=== PATIENT | male | born 1940 | race African-American/Black ===

== ENCOUNTER 2019-12-25 13:41 | Inpatient (IN) | payer OTHER ==
[2019-12-25] VITALS (13 sets, daily range): BP systolic 68–162; BP diastolic 49–84
[~2019-12-25] VITALS: Ht 172.7 cm; Wt 83.1 kg
[2019-12-25] MEDS ORDERED: SODIUM CHLORIDE 0.9% 1,000 ML IV ONE ×2 (15:56→16:34)
[2019-12-25 16:15] LABS: CHLORIDE 103 mEq/L (98-107)
[2019-12-25 16:19] LABS: ETHANOL BLOOD < 10 mg/dL
[2019-12-25 16:25] LABS: BASOPHILS % 0.1 % (0.0-2.0); EOSINOPHILS % 0.3 % (0.0-5.0); HEMATOCRIT. 41.6 % (42.0-52.0); HEMOGLOBIN. 14.2 g/dL (14.0-18.0); LYMPHOCYTES % 7.5 % (20.0-50.0); MEAN CORPUSCULAR HEMOGLOBIN 32.2 pg (28.0-32.0); MEAN CORPUSCULAR VOLUME 94.3 fL (80.0-94.0); MEAN PLATELET VOLUME 10.3 fl (7.4-10.4); MONOCYTES % 10.2 % (2.0-8.0); NEUTROPHILS % 81.9 % (40.0-76.0); PLATELET 277 x1000/uL (130-400); RED BLOOD CELL COUNT 4.42 mill/uL (4.7-6.1); RED CELL DISTRIBUTION WIDTH 13.9 % (11.6-14.6)
[2019-12-25] MEDS ORDERED: LEVETIRACETAM 500MG PREMIX 100 ML IV ONE (16:45)
[2019-12-25 17:40] LABS: CREATINE KINASE 703 IU/L (39-308)
[2019-12-25] MEDS ORDERED: BACITRACIN 15GM TUBE TOP ONE (17:43)
[2019-12-25] MEDS ORDERED: THROMBIN (BOVINE) 5000 UNITS/VIAL TOP ONE (17:43)
[2019-12-25] MEDS ORDERED: NORMAL SALINE 0.9% 10 ML SYR ONE (17:43)
[2019-12-25] MEDS ORDERED: LIDOCAINE HCL 1% 20ML VIAL (Pyxis) INJ ONE ×2 (17:43→19:18)
[2019-12-25] MEDS ORDERED: LACTATED RINGERS 3,000 ML IV ONE (17:44)
[2019-12-25] MEDS ORDERED: BACITRACIN 50,000 UNITS/VIAL ONE (17:44)
[2019-12-25] MEDS ORDERED: LIDOCAINE HCL/EPINEPHRINE 1%-EPI 1:100,000 20 ML VIAL ONE (17:44)
[2019-12-25] MEDS ORDERED: NICARDIPINE 100 MG in SODIUM CHLORIDE 0.9% 60 ML IV PRN (17:45)
[2019-12-25 18:10] LABS: PROTHROMBIN TIME 10.8 sec (9.6-11.0)
[2019-12-25] MEDS ORDERED: MIDAZOLAM HCL 2 MG/2 ML VIAL ONE (19:12)
[2019-12-25] MEDS ORDERED: FENTANYL CITRATE/PF 50MCG/ML 2ML VIAL ONE (19:12)
[2019-12-25] MEDS ORDERED: PROPOFOL 200MG/20ML VIAL IV ONE (19:13)
[2019-12-25] MEDS ORDERED: ROCURONIUM BROMIDE 10MG/ML VIAL 5ML IV ONE (19:19)
[2019-12-25] MEDS ORDERED: SUCCINYLCHOLINE CHLORIDE 200MG/10ML IV ONE (19:19)
[2019-12-25] MEDS ORDERED: SODIUM CHLORIDE 0.9% 10ML VIAL ONE ×2 (19:57→20:26)
[2019-12-25] MEDS ORDERED: EPHEDRINE SULFATE 50MG/ML VIAL ONE (19:57)
[2019-12-25] MEDS ORDERED: NEOSTIGMINE METHYLSULFATE 1MG/ML 10 ML VIAL ONE (20:03)
[2019-12-25] MEDS ORDERED: GLYCOPYRROLATE 0.2 MG/ML 2ML VIAL ONE (20:03)
[2019-12-25] MEDS ORDERED: ESMOLOL HCL 10MG/ML 10ML VIAL IV ONE (20:08)
[2019-12-25] MEDS ORDERED: LABETALOL HCL 5MG/ML VIAL 20ML IV ONE (20:13)
[2019-12-25] MEDS ORDERED: HYDRALAZINE 20MG/ML VIAL ONE (20:26)
[2019-12-25] MEDS ORDERED: ONDANSETRON HCL 4MG/2ML INJ ONE (20:46)
[2019-12-25] MEDS: DEXT 5%/LACTATED RINGERS 1,000 ML IV SCH (21:52)
[2019-12-25] MEDS: LEVETIRACETAM 500MG PREMIX 100 ML IV SCH (21:53)
[2019-12-25] MEDS: MORPHINE SULFATE 2 MG/ML CPJ (NOT FOR IM USE) IV PRN (21:54)
[2019-12-25] MEDS ORDERED: CEFAZOLIN SODIUM 1000MG/VIAL IV SCH ×2 (22:00)
[2019-12-25] MEDS: NICARDIPINE 100 MG in SODIUM CHLORIDE 0.9% 60 ML IV PRN (22:18)
[2019-12-25] MEDS ORDERED: ONDANSETRON HCL 4MG/2ML INJ IV PRN (23:45)
[2019-12-26] VITALS (99 sets, daily range): BP systolic 66–189; BP diastolic 33–298
[2019-12-26] MEDS: MORPHINE SULFATE 2 MG/ML CPJ (NOT FOR IM USE) IV PRN ×2 (01:08→11:54)
[2019-12-26] MEDS: CEFAZOLIN 1000MG PREMIX 50 ML IV SCH ×2 (03:33→11:53)
[2019-12-26 05:29] LABS: BASOPHILS % 0.3 % (0.0-2.0); EOSINOPHILS % 0.3 % (0.0-5.0); HEMATOCRIT. 38.3 % (42.0-52.0); HEMOGLOBIN. 12.7 g/dL (14.0-18.0); LYMPHOCYTES % 9.2 % (20.0-50.0); MEAN CORPUSCULAR HEMOGLOBIN 31.6 pg (28.0-32.0); MEAN CORPUSCULAR VOLUME 95.1 fL (80.0-94.0); MEAN PLATELET VOLUME 10.3 fl (7.4-10.4); MONOCYTES % 10.6 % (2.0-8.0); NEUTROPHILS % 79.6 % (40.0-76.0); PLATELET 257 x1000/uL (130-400); RED BLOOD CELL COUNT 4.03 mill/uL (4.7-6.1); RED CELL DISTRIBUTION WIDTH 14.1 % (11.6-14.6)
[2019-12-26 05:46] LABS: CHLORIDE 109 mEq/L (98-107)
[2019-12-26 05:58] LABS: CREATINE KINASE 847 IU/L (39-308)
[2019-12-26 06:00] LABS: T4 FREE 1.15 ng/dL (0.76-1.46)
[2019-12-26 06:03] LABS: CREATINE KINASE MB FRACTION 4.1 ng/mL (0.5-3.6)
[2019-12-26] MEDS ORDERED: PNEUMOCOCCAL 23-VAL P-SAC VAC 0.5 ML IM ONE (08:00)
[2019-12-26] MEDS: LEVETIRACETAM 500MG PREMIX 100 ML IV SCH ×2 (08:57→21:28)
[2019-12-26] MEDS: DEXT 5%/LACTATED RINGERS 1,000 ML IV SCH (11:54)
[2019-12-26 15:48] LABS: CREATINE KINASE 708 IU/L (39-308)
[2019-12-26 15:49] LABS: CREATINE KINASE MB FRACTION 3.3 ng/mL (0.5-3.6)
[2019-12-26] MEDS: NICARDIPINE 100 MG in SODIUM CHLORIDE 0.9% 60 ML IV PRN (15:57)
[2019-12-26] MEDS ORDERED: ACETAMINOPHEN 325MG TABLET PO PRN (16:15)
[2019-12-26] MEDS ORDERED: ACETAMINOPHEN 650MG SUPP PR PRN (16:15)
[2019-12-26 16:50] LABS: BG BASE EXCESS 0.5 mmol/L (-2.0-2.0); BG CARBOXYHEMOGLOBIN 0.3 % (0.5-1.5); BG DEOXYHEMOGLOBIN 9.3 % (0.0-5.0); BG HCO3 ACT 23.8 mmol/L (22.0-26.0); BG METHEMOGLOBIN 0.3 % (0.0-1.5); BG OXYGEN SATURATION 90.6 % (92.0-98.5); BG OXYHEMOGLOBIN 90.1 % (94.0-97.0); BG PCO2 34.4 mmHg (35.0-45.0); BG PH 7.458 (7.350-7.450); BG PO2 57.3 mmHg (75.0-100.0); BG SAMPLE SITE A-LINE; BG TOTAL HEMOGLOBIN 13.4 g/dL (12.0-18.0); BG VENT MODE ROOM AIR
[2019-12-26] MEDS: PIPERACILLIN/TAZOBACTAM 3.375 G in DEXT 5% WATER 100 ML IV SCH (18:22)
[2019-12-26] MEDS: VANCOMYCIN HCL 750 MG in DEXT 5% WATER 250 ML IV SCH (18:22)
[2019-12-26] MEDS: AMLODIPINE 5MG TABLET PO SCH (18:23)
[2019-12-26 19:40] LABS: *AMPHETAMINES SCREEN URINE NEGATIVE (NEGATIVE); *BARBITURATES SCREEN URINE NEGATIVE (NEGATIVE); *BENZODIAZEPINES SCREEN URINE PRESUMTIVE POSITIVE (NEGATIVE)
[2019-12-26 19:41] LABS: *COCAINE SCREEN URINE NEGATIVE (NEGATIVE); CANNABINOID URINE SCREEN NEGATIVE (NEGATIVE); METHADONE URINE SCREEN NEGATIVE (NEGATIVE); OPIATES URINE SCREEN PRESUMTIVE POSITIVE (NEGATIVE)
[2019-12-26 19:42] LABS: PHENCYCLIDINE URINE SCREEN NEGATIVE (NEGATIVE)
[2019-12-26] MEDS: HYDRALAZINE HCL 25MG TABLET PO SCH (21:29)
[2019-12-27] VITALS (99 sets, daily range): BP systolic 68–180; BP diastolic 25–96
[2019-12-27] MEDS: NICARDIPINE 100 MG in SODIUM CHLORIDE 0.9% 60 ML IV PRN ×2 (01:24→17:18)
[2019-12-27] MEDS: PIPERACILLIN/TAZOBACTAM 3.375 G in DEXT 5% WATER 100 ML IV SCH ×5 (01:24→23:48)
[2019-12-27 05:38] LABS: CHLORIDE 106 mEq/L (98-107)
[2019-12-27 05:39] LABS: BASOPHILS % 0.3 % (0.0-2.0); EOSINOPHILS % 0.9 % (0.0-5.0); HEMATOCRIT. 38.7 % (42.0-52.0); HEMOGLOBIN. 12.9 g/dL (14.0-18.0); LYMPHOCYTES % 10.6 % (20.0-50.0); MEAN CORPUSCULAR HEMOGLOBIN 31.4 pg (28.0-32.0); MEAN CORPUSCULAR VOLUME 94.4 fL (80.0-94.0); MEAN PLATELET VOLUME 10.4 fl (7.4-10.4); MONOCYTES % 11.8 % (2.0-8.0); NEUTROPHILS % 76.4 % (40.0-76.0); PLATELET 253 x1000/uL (130-400); RED CELL DISTRIBUTION WIDTH 14.1 % (11.6-14.6)
[2019-12-27 05:52] LABS: LDL CHOLESTEROL 73 mg/dL (5-100)
[2019-12-27 05:53] LABS: HDL CHOLESTEROL 57 mg/dL (40-59)
[2019-12-27] MEDS: VANCOMYCIN HCL 750 MG in DEXT 5% WATER 250 ML IV SCH ×2 (06:18→17:19)
[2019-12-27] MEDS: HYDRALAZINE HCL 25MG TABLET PO SCH ×3 (08:05→21:24)
[2019-12-27] MEDS: AMLODIPINE 5MG TABLET PO SCH ×2 (08:06→21:24)
[2019-12-27] MEDS: MORPHINE SULFATE 2 MG/ML CPJ (NOT FOR IM USE) IV PRN (08:07)
[2019-12-27] MEDS: LEVETIRACETAM 500MG PREMIX 100 ML IV SCH ×2 (08:08→21:24)
[2019-12-27] MEDS ORDERED: POTASSIUM CHLORIDE 20MEQ TABLET SR PO NR (11:15)
[2019-12-27 14:09] LABS: BG BASE EXCESS -0.3 mmol/L (-2.0-2.0); BG CARBOXYHEMOGLOBIN 0.3 % (0.5-1.5); BG DEOXYHEMOGLOBIN 8.8 % (0.0-5.0); BG FRACTION INSPIRED OXYGEN 21; BG HCO3 ACT 23.1 mmol/L (22.0-26.0); BG METHEMOGLOBIN 0.2 % (0.0-1.5); BG OXYGEN SATURATION 91.2 % (92.0-98.5); BG OXYHEMOGLOBIN 90.7 % (94.0-97.0); BG PCO2 34.2 mmHg (35.0-45.0); BG PH 7.448 (7.350-7.450); BG PO2 58.8 mmHg (75.0-100.0); BG SAMPLE SITE A-LINE; BG TOTAL HEMOGLOBIN 12.9 g/dL (12.0-18.0); BG VENT MODE ROOM AIR
[2019-12-27 16:17] LABS: CLARITY URINE CLOUDY (CLEAR); COLOR URINE DK YELLOW (YELLOW); KETONES URINE NEGATIVE (NEGATIVE); LEUKOCYTE ESTERASE URINE 1+ (NEGATIVE); NITRITE URINE NEGATIVE (NEGATIVE); OCCULT BLOOD URINE 1+ (NEGATIVE); PROTEIN URINE TRACE (NEGATIVE); SPECIFIC GRAVITY URINE 1.023 (1.005-1.030)
[2019-12-27] MEDS: LOSARTAN POTASSIUM 25 MG TABLET PO SCH (17:19)
[2019-12-28] VITALS (77 sets, daily range): BP systolic 83–169; BP diastolic 46–108
[2019-12-28] MEDS: NICARDIPINE 100 MG in SODIUM CHLORIDE 0.9% 60 ML IV PRN ×2 (00:36→10:01)
[2019-12-28] MEDS: PIPERACILLIN/TAZOBACTAM 3.375 G in DEXT 5% WATER 100 ML IV SCH ×3 (05:02→17:34)
[2019-12-28] MEDS: VANCOMYCIN HCL 750 MG in DEXT 5% WATER 250 ML IV SCH (05:02)
[2019-12-28] MEDS: HYDRALAZINE HCL 25MG TABLET PO SCH ×3 (05:04→21:16)
[2019-12-28 05:48] LABS: BASOPHILS % 0.5 % (0.0-2.0); EOSINOPHILS % 1.1 % (0.0-5.0); HEMATOCRIT. 37.5 % (42.0-52.0); HEMOGLOBIN. 12.7 g/dL (14.0-18.0); LYMPHOCYTES % 11.2 % (20.0-50.0); MEAN CORPUSCULAR HEMOGLOBIN 31.6 pg (28.0-32.0); MEAN CORPUSCULAR VOLUME 93.6 fL (80.0-94.0); MEAN PLATELET VOLUME 10.4 fl (7.4-10.4); MONOCYTES % 11.5 % (2.0-8.0); NEUTROPHILS % 75.7 % (40.0-76.0); PLATELET 272 x1000/uL (130-400); RED CELL DISTRIBUTION WIDTH 13.9 % (11.6-14.6)
[2019-12-28 06:23] LABS: HEPATITIS B SURFACE ANTIGEN NEGATIVE
[2019-12-28 06:52] LABS: HEPATITIS A AB IGM NEGATIVE (NEGATIVE)
[2019-12-28 07:39] LABS: CHLORIDE 104 mEq/L (98-107)
[2019-12-28 07:48] LABS: VANCOMYCIN TROUGH 6.7 ug/mL (5.0-10.0)
[2019-12-28] MEDS: LEVETIRACETAM 500MG PREMIX 100 ML IV SCH ×2 (08:30→20:42)
[2019-12-28] MEDS: LOSARTAN POTASSIUM 25 MG TABLET PO SCH (08:30)
[2019-12-28] MEDS: AMLODIPINE 5MG TABLET PO SCH ×2 (08:31→20:43)
[2019-12-28] MEDS ORDERED: VANCOMYCIN 500 MG PREMIX 100 ML IV SCH (10:00)
[2019-12-28] MEDS ORDERED: POTASSIUM CHLORIDE 20MEQ TABLET SR PO SCH (10:15)
[2019-12-28] MEDS ORDERED: LOSARTAN POTASSIUM 25 MG TABLET PO SCH (10:30)
[2019-12-28] MEDS: LOSARTAN POTASSIUM 50 MG TABLET PO SCH (20:43)
[2019-12-29] VITALS: BP 140/78
[2019-12-29] MEDS: PIPERACILLIN/TAZOBACTAM 3.375 G in DEXT 5% WATER 100 ML IV SCH ×5 (00:45→23:58)
[2019-12-29 04:00] VITALS: BP 137/81
[2019-12-29] MEDS: VANCOMYCIN 1250MG in DEXTROSE 5% WATER 250ML IV SCH ×3 (04:53→21:19)
[2019-12-29 05:52] LABS: CHLORIDE 107 mEq/L (98-107)
[2019-12-29 05:54] LABS: BASOPHILS % 0.4 % (0.0-2.0); EOSINOPHILS % 0.9 % (0.0-5.0); HEMATOCRIT. 37.1 % (42.0-52.0); HEMOGLOBIN. 12.4 g/dL (14.0-18.0); LYMPHOCYTES % 7.7 % (20.0-50.0); MEAN CORPUSCULAR HEMOGLOBIN 31.3 pg (28.0-32.0); MEAN CORPUSCULAR VOLUME 93.4 fL (80.0-94.0); MEAN PLATELET VOLUME 10.5 fl (7.4-10.4); MONOCYTES % 11.4 % (2.0-8.0); NEUTROPHILS % 79.6 % (40.0-76.0); PLATELET 286 x1000/uL (130-400); RED BLOOD CELL COUNT 3.97 mill/uL (4.7-6.1); RED CELL DISTRIBUTION WIDTH 13.9 % (11.6-14.6)
[2019-12-29] MEDS: HYDRALAZINE HCL 25MG TABLET PO SCH ×3 (07:18→21:20)
[2019-12-29 08:00] VITALS: BP 122/72
[2019-12-29] MEDS: LOSARTAN POTASSIUM 50 MG TABLET PO SCH ×2 (09:22→21:18)
[2019-12-29] MEDS: LEVETIRACETAM 500MG PREMIX 100 ML IV SCH ×2 (09:22→21:19)
[2019-12-29] MEDS: AMLODIPINE 5MG TABLET PO SCH ×2 (09:32→21:19)
[2019-12-29 10:08] LABS: HIV SCREEN 4G Non Reactive (Non Reactive)
[2019-12-29 12:00] VITALS: BP 117/66
[2019-12-29 16:00] VITALS: BP 120/74
[2019-12-29 20:00] VITALS: BP 123/69
[2019-12-30] VITALS: BP 128/70
[2019-12-30 04:00] VITALS: BP 127/68
[2019-12-30] MEDS: HYDRALAZINE HCL 25MG TABLET PO SCH ×2 (05:31→13:03)
[2019-12-30] MEDS: PIPERACILLIN/TAZOBACTAM 3.375 G in DEXT 5% WATER 100 ML IV SCH ×2 (05:31→13:02)
[2019-12-30 07:20] LABS: BASOPHILS % 0.6 % (0.0-2.0); EOSINOPHILS % 1.6 % (0.0-5.0); HEMATOCRIT. 38.6 % (42.0-52.0); HEMOGLOBIN. 13.1 g/dL (14.0-18.0); LYMPHOCYTES % 7.7 % (20.0-50.0); MEAN CORPUSCULAR HEMOGLOBIN 31.3 pg (28.0-32.0); MEAN CORPUSCULAR VOLUME 92.7 fL (80.0-94.0); MEAN PLATELET VOLUME 10.2 fl (7.4-10.4); MONOCYTES % 10.6 % (2.0-8.0); NEUTROPHILS % 79.5 % (40.0-76.0); PLATELET 305 x1000/uL (130-400); RED BLOOD CELL COUNT 4.17 mill/uL (4.7-6.1); RED CELL DISTRIBUTION WIDTH 13.8 % (11.6-14.6)
[2019-12-30 07:32] LABS: CHLORIDE 107 mEq/L (98-107)
[2019-12-30 08:00] VITALS: BP 133/71
[2019-12-30] MEDS: AMLODIPINE 5MG TABLET PO SCH ×2 (09:27→21:02)
[2019-12-30] MEDS: LEVETIRACETAM 500MG PREMIX 100 ML IV SCH ×2 (09:28→21:07)
[2019-12-30] MEDS: LOSARTAN POTASSIUM 50 MG TABLET PO SCH ×2 (09:28→21:03)
[2019-12-30 12:00] VITALS: BP 130/67
[2019-12-30] MEDS ORDERED: SULF1TAB48 MT (15:41)
[2019-12-30] MEDS ORDERED: KEPP500 MT (15:41)
[2019-12-30] MEDS ORDERED: CEPH-569 MT (15:41)
[2019-12-30] MEDS ORDERED: HYDR-4135 MT (15:41)
[2019-12-30] MEDS ORDERED: AMLO5TAB4 MT (15:41)
[2019-12-30] MEDS ORDERED: LOSA50TA3 MT (15:41)
[2019-12-30 16:00] VITALS: BP 149/78
[2019-12-30 20:00] VITALS: BP 151/77
[2019-12-30] MEDS: HYDRALAZINE HCL 50MG TABLET PO SCH (21:06)
[2019-12-31] VITALS: BP 143/79
[2019-12-31 04:00] VITALS: BP 140/72
[2019-12-31] MEDS: HYDRALAZINE HCL 50MG TABLET PO SCH ×2 (06:25→13:52)
[2019-12-31 08:00] VITALS: BP 135/77
[2019-12-31] MEDS: AMLODIPINE 5MG TABLET PO SCH (08:20)
[2019-12-31] MEDS: LOSARTAN POTASSIUM 50 MG TABLET PO SCH (08:20)
[2019-12-31] MEDS: LEVETIRACETAM 500MG PREMIX 100 ML IV SCH (08:20)
[2019-12-31 12:00] VITALS: BP 126/66
[2019-12-31 14:36] VITALS: BP 134/70
== END 2019-12-31 15:50 | disposition home or self-care (01) | DRG 25 ==
LOC: ER 13:41 → EDBEDREQ 16:39 → ENRESERV 17:45 → MICUNO 18:09 → EDBEDREQTM 18:10 → EDBEDREQ 18:10 → MICUSO 21:00 → 6EST 12-28 18:55
PROVIDERS: ADMIT Internal Medicine; ATTEND Internal Medicine
PROC: 00C40ZZ Extirpation of Matter from Intracranial Subdural Space, Open Approach (ICD-10-PCS; principal; 2019-12-25)
PROC: 00H032Z Insertion of Monitoring Device into Brain, Percutaneous Approach (ICD-10-PCS; 2019-12-25)
PROC: 00U207Z Supplement Dura Mater with Autologous Tissue Substitute, Open Approach (ICD-10-PCS; 2019-12-25)
PROC: 0NQ Head and Facial Bones, Repair (ICD-10-PCS; 2019-12-25)
PROC: 4A107BD Monitoring of Intracranial Pressure, Via Natural or Artificial Opening (ICD-10-PCS; 2019-12-25)
DX: I62.02 Nontraumatic subacute subdural hemorrhage (principal); J96.00 Acute respiratory failure, unspecified whether with hypoxia or hypercapnia; G93.40 Encephalopathy, unspecified; D72.810 Lymphocytopenia; D64.9 Anemia, unspecified; F10.10 Alcohol abuse, uncomplicated; F17.210 Nicotine dependence, cigarettes, uncomplicated; I10 Essential (primary) hypertension; Z60.2 Problems related to living alone; E80.6 Other disorders of bilirubin metabolism; Z59.0 Homelessness; Z03.818 Encounter for observation for suspected exposure to other biological agents ruled out
CPT/HCPCS: 36415; 36600; 71045; 80048; 80053; 80061; 80076; 80202; 80305; 80320; 81003; 82140; 82375; 82550; 82553; 82805; 83036; 83615; 84145; 84439; 84443; 84484; 85025; 86705; 86709; 86803; 86850; 86900; 87340; 87389; 87635; 88304; 93005; 97116; 97162; 97166; 97530; 97535; 99291; C1713; J0330; J0360; J0690; J1953; J2250; J2270; J2405; J2543; J2704; J2710; J3010; J3370; J3490; J7030; J7050; J7060; J7120; J7121; L3908; G0480

== ENCOUNTER 2020-03-29 20:16 | Emergency (ER) | payer OTHER ==
[~2020-03-29] VITALS: Ht 175.3 cm; Wt 79.0 kg
[~2020-03-29 20:16] MED LIST: AMLO5TAB4 MT; CEPH-569 MT; HYDR-4135 MT; KEPP500 MT; LOSA50TA3 MT; SULF1TAB48 MT
[2020-03-29] MEDS ORDERED: TETANUS, DIPHTHERIA, PERTUSSIS VAC/PF 0.5ML (>7YR OLD) IM ONE (22:15)
[2020-03-29] MEDS ORDERED: LIDOCAINE HCL/EPINEPHRINE 1%-EPI 1:100,000 20 ML VIAL INFIL ONE (23:45)
[2020-03-29] MEDS ORDERED: BACITRACIN ZINC OINT UDPKT TOP ONE (23:45)
[2020-03-29] MEDS ORDERED: AMOXICILLIN/POTASSIUM CLAVULANATE 875/125MG TAB PO ONE (23:45)
[2020-03-31] MEDS ORDERED: HYDRALAZINE 20MG/ML VIAL IV ONE (00:15)
[2020-03-31] MEDS ORDERED: HYDRALAZINE HCL 50MG TABLET PO SCH (01:15)
[2020-03-31] MEDS ORDERED: CLONIDINE 0.1MG TABLET PO ONE (06:45)
[2020-03-31 09:11] VITALS: BP 137/74
== END 2020-03-31 09:59 | disposition home or self-care (01) ==
LOC: ER 20:16
DX: S02.2XXA Fracture of nasal bones, initial encounter for closed fracture (principal); S01.511A Laceration without foreign body of lip, initial encounter; I10 Essential (primary) hypertension; E78.5 Hyperlipidemia, unspecified; F19.10 Other psychoactive substance abuse, uncomplicated; Z79.899 Other long term (current) drug therapy; Y04.0XXA Assault by unarmed brawl or fight, initial encounter; Y93.89 Activity, other specified; Y92.89 Other specified places as the place of occurrence of the external cause; Y99.8 Other external cause status
CPT/HCPCS: 12011; 70450; 70486; 90471; 90715; 99285; J3490